=== PATIENT | female | born 1985 | race Caucasian/White ===

== ENCOUNTER → 2021-11-08 | Day surgery (SDC) | payer OTHER ==
[~2021-11-08] VITALS: Ht 162.6 cm; Wt 103.0 kg
[~2021-11-08] MED LIST: BUDE10.2 IH; CYCL5TAB PO; FEXO1TAB31 PO; IPRA4AER IH; IV RINGERS,LACTATED 1000ML 1,000 ML IV SCH; LIDO1ADH78 TP; MOME13HF IH; MOME17SP5 NS; MONT10TA49 PO; MULT-121 PO; PANT40VI IV; PHEN37.59 PO; PROPOFOL 10 MG/ML (20ML) VIAL. IV ONE; TOPI50TA8 PO
[2021-11-08 08:59] VITALS: BP 124/64
[2021-11-08 10:05] VITALS: BP 106/66
--- NOTE | 2021-11-13 11:24 | PATHOLOGY ---
[facility] Accession Number: [id number] . 01 Material submitted: . colon - RANDOM COLON BIOPSY. Modifiers: RANDOM . 01 Clinical history: . ABNORMAL CT RECTAL BLEED DIARRHEA COPD AND ASTHMA . 02 Diagnosis: Large bowel "random colon biopsy": - Large bowel mucosa without significant pathologic alteration. (MLK:jeaneth; 11/12/2021) QMS 11/12/2021 0736 Local . 02 Electronically signed: . Archie Desai MD, Pathologist NPI- [id number] . 01 Gross description: . The specimen is received in formalin, labeled "[place], [place], random colon bx" and consists of multiple wade irregular tissues aggregating 2.0 x 0.6 x 0.2 cm which are filtered and submitted in toto in A1.(GALENA; 11/08/2021) DKA/DKA 11/08/20212021 Local . 02 Pathologist provided ICD-10: K62.5, R19.7 . 02 CPT . 773875 Specimen Comment: A courtesy copy of this report has been sent to [phone], [phone] Specimen Comment: [id number] Specimen Comment: Report sent to / DR RENAE Specimen Comment: A duplicate report has been generated due to demographic updates. Performed at: 01 [facility] [address], [place] [id number] MD [place] MD Phone: [phone] Performed at: 02 [facility] [address], [place] [id number] MD Jacob Canela MD Phone: [phone]
== END | disposition home or self-care (01) ==
LOC: ENDOS 08:41
PROVIDERS: ATTEND Internal Medicine Gastroenterology
DX: K92.1 Melena (principal); K64.0 First degree hemorrhoids; K62.5 Hemorrhage of anus and rectum; K63.89 Other specified diseases of intestine; R19.7 Diarrhea, unspecified; I10 Essential (primary) hypertension; J45.909 Unspecified asthma, uncomplicated; K21.9 Gastro-esophageal reflux disease without esophagitis; Z88.6 Allergy status to analgesic agent; Z79.899 Other long term (current) drug therapy; Z98.890 Other specified postprocedural states
CPT/HCPCS: 45380; 81025; J2704; 88305

== ENCOUNTER → 2021-12-24 | Outpatient (CLI) | payer OTHER ==
[2021-11-08 10:05] VITALS: BP 106/66
[~2021-12-24] MED LIST changes: +AMLO-187 PO; +BREO ELLIPTA 21 EACH IH; +CRESTOR5 MG PO; +FLUO20CA22 PO; +FLUT16SP NS; -IV RINGERS,LACTATED 1000ML 1,000 ML IV SCH; -PROPOFOL 10 MG/ML (20ML) VIAL. IV ONE; +TIOT18CA IH
--- NOTE | 2021-12-24 11:04 | PDOC1 ---
INITIAL PAIN CONSULT DATE OF SERVICE: DOS: DATE: 12/24/21 TIME: 10:56 CHIEF COMPLAINT: Chief Complaint: Low back and bilateral lower extremity pain HISTORY OF PRESENT ILLNESS: 36-year-old female presents for evaluation low back and bilateral lower extremity pain for 9 months not the result of any specific injury or accident she is aware make it worse with time radiating from the low back into the bilateral right and left lower extremity essentially equal right and left lower extremity posterior gluteus posterior lateral thigh lateral anterior thigh anteromedial thigh medial lower leg as well with walking standing changing positions. Patient reports is worse with getting up from a chair standing for more than about 10 minutes also wakes her from sleep about 2-4 times a night patient reports does not affect her bowel bladder control but does affect her ability to walk some days much worse than others where she is unable to walk even a little bit patient reports within 5 to 10 minutes she needs to find somewhere to sit down and rest patient reports she has had physical therapy which made the pain worse also chiropractic treatment which made the pain worse and is doing some exercise and stretching currently but is not helpful with the pain currently. Patient's been taking [id number] Aleve as well as Motrin as well as Tylenol with only minimal decrease in pain with any of these. Patient had some prescription anti-inflammatories approximately 9 months ago, she is unsure of the name but was not helpful as well. Patient has had 1 epidu ral injection at outside facility in [facility], which was very helpful and this was last May. Patient rates her disability of 0-10 10 and there was a 9 with social activity and occupational activities 10 with recreation and self-care 8 with family house possibilities 7 with sexual behavior 0 with life support activities. Patient had MRI scan of the lumbar spine showing broad- based posterior disc bulge L4-5 with annular tear in the posterior aspect of the disc and degenerative disc and facet joint arthropathy at L4-5 level. Patient reports no motor loss but significant fatigability of both lower extremities with ambulation standing and walking. PAST MEDICAL HISTORY: PMH: Hypertension PREVIOUS SURGERIES: Past Surgical Hx: Cholecystectomy, x2, thumb surgery, endometrial ablation CURRENT MEDICATIONS: Current Meds: Active Scripts Medications Dose Route/Sig Max Daily Dose Days Date Category Crestor (Rosuvastatin Calcium) 5 Mg Tablet 5 Mg PO HS 12/24/21 Reported Fluticasone Propionate Nasal [place] (Fluticasone Propionate) 16 Gm [place].susp 2 [place] NS DAILY 12/24/21 Reported Amlodipine Besylate 10 Mg Tablet 10 Mg PO DAILY 12/24/21 Reported Fluoxetine Hcl 20 Mg Capsule 1 Cap PO DAILY 12/24/21 Reported Spiriva (Tiotropium [place]) 18 Mcg Cap.w.dev 1 Cap IH DAILY 12/24/21 Reported Breo Ellipta 200-25 Mcg INH (Fluticasone/Vilanterol) 1 Each Blst.w.dev 1 Puff IH DAILY 12/24/21 Reported ALLERGIES; Allergies: Coded Allergies: morphine (Verified Allergy, Intermediate, Hives, 11/08/21) FAMILY HISTORY: Family Hx: No major medical problems or conditions that she is aware of. SOCIAL HISTORY: Social Hx: Patient does not trena alcohol does not smoke says any illegal illicit recreational drugs is lives with her spouse and 2 children living at home lives locally in [facility] REVIEW OF SYSTEMS: ROS: Positive for those items mentioned in history of present illness, all systems are reviewed, otherwise negative ,and are complete full and well-documented on patient's chart. PHYSICAL EXAM: VS: Blood pressure is 133/82 pulse 70 respirations 18 temperature 98.1 F height is 5 feet 4 inches weight is 228 pounds. PE: PHYSICAL EXAMINATION: GENERAL: The patient is awake, alert, oriented, appropriate, very pleasant in demeanor, patient companied by her . HEENT: Shows normocephalic, atraumatic. Extraocular movements are intact and symmetrical. Oral cavity: Mucous membranes moist and pink. Dentition is intact. NECK: Shows anterior throat supple without palpable lymphadenopathy noted. Swallow reflex symmetrical. CHEST: Shows normal on inspection. Breath sounds are clear bilaterally, no rales rhonchi or wheezes auscultated. HEART: Shows S1, S2 clear. No murmurs auscultated. ABDOMEN: Soft, nontender, nondistended. No palpable organomegaly is noted. BACK: Shows spine grossly in the midline. Normal-appearing cervical lordotic curvature. Cervical paraspinous muscles show symmetrical with inspection on palpation some moderate tenderness diffusely in the inferior aspect cervical paraspinous musculature bilaterally without atrophy hypertrophy or asymmetry. Patient shows good rotation motion cervical spine both laterally as well as extension flexion without significant difficulty. There is slightly increased thoracic kyphosis, some minor flattening of the lumbar lordotic curvature. Lumbar paraspinous muscles show symmetrical on inspection, on palpation shows some moderate tenderness diffusely throughout the upper, middle and lower distribution of the paraspinous muscles bilaterally and also into the lower thoracic paraspinous musculature, firm and tender, but without specific trigger points, without radiation of pain. The patient has good rotational motion of the lumbar spine, both laterally as well as extension and flexion without significant difficulty. No tenderness over the spinous processes, sacrum or sacroiliac regions. EXTREMITIES: Lower extremities show deep tendon reflexes 2+ in the patellar and tendo calcaneus tendons. Motor exam is 4 on a scale of 5 with right dorsiflexion, extension, quadriceps and hamstring flexion and 4/5 on the left. Peripheral pulses are 1+ posterior tibial. No peripheral edema is noted bilaterally. Lower extremities are warm and dry to touch, equal in color and appearance. Straight leg raise noted to be positive bilaterally approximate 45 degrees, decreased with knee flexion. Gaenslen's and Ciaran's maneuvers are negative bilaterally as well. The patient is able to stand, stand on her toes without significant difficulty or loss of balance walks with a slight shuffling gait not use any assistive devices to ambulate such as canes or walkers however. SKIN: Shows warm and dry, good turgor. No edema. No sores, rashes or bruising throughout. IMPRESSION: Impression: 36-year-old female with 9-month history increasing pain low back bilateral lower extremities and radicular fashion following L4-5 dermatomal distribution. MRI scan lumbar spine as noted Hypertension Plan: Options were discussed with patient occluding conservative managements continued physical therapies as well as interventional techniques. Patient would like to pursue interventional techniques as she has been through physical therapy as well as chiropractic treatment which made the pain worse oral analgesics not been helpful significantly. We discussed a lumbar epidural steroid injections description as well as anatomical models described procedure. Patient will wait for preauthorization with her insurance provider, once obtained we will have her return for a translaminar approach L4-5 level lumbar epidural steroid injection with fluoroscopic guidance. In the meantime, patient continue with stretching strength exercises heat application as well as oral analgesics as currently. ALBERTO ESPINO MD December 24, 2021 11:04
== END | disposition home or self-care (01) ==
LOC: PNCL 09:52
PROVIDERS: ATTEND Anesthesiology
DX: M54.50 Low back pain, unspecified (principal); M79.605 Pain in left leg; M79.604 Pain in right leg; I10 Essential (primary) hypertension; J45.909 Unspecified asthma, uncomplicated; K21.9 Gastro-esophageal reflux disease without esophagitis; Z90.49 Acquired absence of other specified parts of digestive tract; Z98.890 Other specified postprocedural states; Z88.6 Allergy status to analgesic agent
CPT/HCPCS: 99214; G0463